=== PATIENT | male | born 1970 | race Caucasian/White ===

== ENCOUNTER 2018-05-06 08:09 | Emergency (ER) | payer BC, MEDICAID ==
--- NOTE | 2018-05-06 08:29 | Emergency Department Record ---
History of Present Illness - General Chief Complaint: Back Pain/Injury Stated Complaint: BACK INJURY Time Seen by Provider: 05/06/18 08:20 Source: Patient Mode of Arrival: Ambulatory Limitations: No limitations - History of Present Illness Initial Comments: 47 yo male presents with low back pain. He fell running backward in the yard. The injury occurred on the 03 of May. The pain is localized to the lumbar. No radiation to the legs. No numbness, weakness, tingling. No changes in bowel or bladder function. He is ambulatory but it hurts to move or change position. MD Complaint: Back pain, Back injury -: Days(s) (3) Place: Home Radiation: None Severity: Moderate Quality: Aching Consistency: Constant Improves With: Immobilization Worsens With: Movement Context: Fall Associated Symptoms: Denies other symptoms - Related Data Previous Rx's Medication Instructions Recorded Cyclobenzaprine HCl [Flexeril] 10 mg PO TID #15 tablet 05/06/18 Allergies Allergy/AdvReac Type Severity Reaction Status Date / Time prednisone AdvReac HEADACHE Verified 05/06/18 08:23 Review of Systems Constitutional: Denies: Chills, Fever, Malaise, Weakness Eyes: Denies: Eye discharge ENT: Denies: Congestion, Throat pain Respiratory: Denies: Cough, Dyspnea, Hemoptysis, Wheezes Cardiovascular: Denies: Chest pain, Palpitations, Syncope Endocrine: Denies: Fatigue, Polydipsia, Polyuria Gastrointestinal: Denies: Abdominal pain, Diarrhea, Nausea, Vomiting Genitourinary: Denies: Dysuria, Frequency, Hematuria, Urgency Musculoskeletal: Reports: Back pain, Myalgia. Denies: Arthralgia, Joint swelling Skin: Denies: Bruising, Change in color, Rash Neurological: Denies: Abnormal gait, Confusion, Headache, Numbness, Paresthesias , Tingling, Weakness Psychiatric: Denies: Anxiety Hematological/Lymphatic: Denies: Blood Clots, Easy bleeding, Easy bruising, Swollen glands Physical Exam - General General Appearance: Alert, Oriented x3, Cooperative, No acute distress Limitations: No limitations - Head Head exam: Atraumatic, Normocephalic, Normal inspection Head exam detail: negative: Abrasion, Contusion, Hematoma, Laceration - Eye Eye exam: Normal appearance. negative: Conjunctival injection, Scleral icterus - ENT ENT exam: Normal exam, Mucous membranes moist Ear exam: Normal external inspection Nasal Exam: Normal inspection Mouth exam: Normal external inspection - Neck Neck exam: Normal inspection, Full ROM. negative: Tenderness - Respiratory Respiratory exam: Normal lung sounds bilaterally. negative: Respiratory distress - Cardiovascular Cardiovascular Exam: Regular rate, Normal rhythm, Normal heart sounds - Rectal Rectal exam: Deferred - exam: Deferred - Extremities Extremities exam: Normal inspection, Full ROM, Normal capillary refill. negative: Calf tenderness, Joint swelling, Pedal edema, Tenderness - Back Back exam: Reports: Full ROM, Muscle spasm, Paraspinal tenderness, Tenderness ( mid lumbar), Vertebral tenderness (mid lumbar). Denies: CVA tenderness (R), CVA tenderness (L) - Neurological Neurological exam: Alert, Normal gait, Oriented X3, Reflexes normal. negative: Abnormal gait - Psychiatric Psychiatric exam: Normal affect, Normal mood - Skin Skin exam: Dry, Intact, Normal color, Warm Course - Reevaluation(s) Reevaluation #1: 05/06/18 08:40 MAPS score 640 > 4 pharmacies in 90 days Last [facility] on 04/19/18 60 tablets 05/06/18 09:09 The prelim XR was reviewed. No acute fracture or subluxation. Mild degenerative changes. 05/06/18 09:10 We discussed the results of the tests and questions were answered at the time of discharge. The patient is doing well and is comfortable with DC. We discussed at length reasons to immediately return to the ED as well as close follow up. The patient will call the PCP for close follow up of this ED visit to review this visit and the tests performed Disposition Disposition: Discharge Clinical Impression: Lumbar spine strain Qualifiers: Encounter type: initial encounter Qualified Code(s): S39.012A - Strain of muscle, fascia and tendon of lower back, initial encounter Disposition: Home, Self-Care Condition: (1) Good Instructions: Low Back Strain (ED) Additional Instructions: Return to ED if your symptoms worsen or if you have any new concerns. Take the prescriptions provided today as directed. Follow-up with your family doctor at the next available appointment. Review the final Emergency Record and test results with your doctor on follow up You had radiology studies done in the ED that will be further reviewed by the radiologist. You will need to see your doctor to review the final results. Todays results were a preliminary result only. Prescriptions: Cyclobenzaprine HCl [Flexeril] 10 mg PO TID #15 tablet Forms: Patient Portal Access Time of Disposition: 09:11 Quality - Quality Measures Quality Measures: N/A - Blood Pressure Screening Does Patient Have Any of the Following: No Blood Pressure Classification: Hypertensive Reading Systolic Measurement: 154 Diastolic Measurement: 96 Screening for High Blood Pressure: < Pre-Hypertensive BP, F/U Documented > [ [id number]] Pre-Hypertensive Follow-up Interventions: Referral to alternative/primary care provider.
--- NOTE | 2018-05-08 08:20 | RADIOLOGY REPORT ---
EXAM: LUMBAR SPINE, FOUR VIEWS HISTORY: LOW BACK PAIN AFTER FALL. TECHNIQUE: Four views of the lumbar spine were obtained. Comparison: 12/23/13. FINDINGS: There are five lumbar vertebral bodies. Alignment and vertebral body heights are maintained. The disk spaces are preserved. No visible spondylolysis. IMPRESSION: NEGATIVE EXAMINATION. JOB NUMBER: [id number] MTDD
== END 2018-05-06 09:20 | disposition home or self-care (01) ==
LOC: ER 08:09
DX: S39.012A Strain of muscle, fascia and tendon of lower back, initial encounter (principal); W18.30XA Fall on same level, unspecified, initial encounter; Y93.01 Activity, walking, marching and hiking; Y92.007 Garden or yard of unspecified non-institutional (private) residence as the place of occurrence of the external cause
CPT/HCPCS: 72110; 99283